=== PATIENT | female | born 1985 | race Caucasian/White ===

== ENCOUNTER 2017-01-16 11:03 | Outpatient (CLI) | payer BC ==
[2017-01-16 13:06] LABS: Hematocrit 36.2 % (36.0-47.0); Mean Platelet Volume 6.5 fL (7.4-10.4); Red Blood Cell (RBC) Count 3.88 mill/uL (4.20-5.40); White Blood Cell (WBC) Count 11.8 thou/uL (4.8-10.8)
== END 2017-01-16 11:04 | disposition home or self-care (01) ==
LOC: LABBT 11:03
PROVIDERS: ATTEND Student in an Organized Health Care Education/Training Program
DX: Z01.812 Encounter for preprocedural laboratory examination (principal); R87.613 High grade squamous intraepithelial lesion on cytologic smear of cervix (HGSIL); R10.9 Unspecified abdominal pain; D25.9 Leiomyoma of uterus, unspecified
CPT/HCPCS: 84703; 85027; 86850; 86900; 86901

== ENCOUNTER 2017-01-16 11:30 | Inpatient (IN) | payer BC ==
[2017-01-16 11:24] VITALS: BMI 25.4
--- NOTE | 2017-01-16 22:07 | HP ---
DATE OF OPERATION: 01/17/2017 CHIEF COMPLAINT: Pelvic pain and menorrhagia, VAL 3. HISTORY OF PRESENT ILLNESS: This is a 31-year-old, G0, who presented initially in 11/2016 with complaints of heavy menses and increasing right lower quadrant pain. She had been seen in the ER prior to this appointment and had a CT that showed significantly enlarged uterus up to 10 cm in AP dimension with the appearance of a large uterine fibroid. She subsequently had an ultrasound in my office that showed uterus measuring 12.67 x 8.16 x 9.6 with a large degenerating fibroid pulling the uterus measuring 9.89 x 7.06, normal right and left ovaries. 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 She underwent colposcopy with directed biopsies that showed a VAL 3 lesion on the ectocervix. She desired definitive management with hysterectomy for heavy menses and persistent daily pelvic pain and was counseled to undergo laparoscopic hysterectomy. CURRENT MEDICATIONS: None. ALLERGIES: IBUPROFEN causes tingling. PAST MEDICAL HISTORY: Denies. PAST SURGICAL HISTORY: Denies. OBSTETRIC HISTORY: G0. RADIOLOGY RN HISTORY: VAL 3 on recent colposcopy biopsy in 12/2016. No other STDs/HPV. SOCIAL HISTORY: smoking 4 cigarettes per day, occasional alcohol consumption. The patient is single and homosexual. FAMILY HISTORY: Diabetes. PHYSICAL EXAMINATION: VITAL SIGNS: Blood pressure 110/72, pulse is 80, respirations 18, weight 148, height of 64 inches, BMI is 25.4. GENERAL: No acute distress, alert and oriented x3. CARDIAC: Regular rate and rhythm. LUNGS: Clear to auscultation bilaterally. ABDOMEN: Soft, nontender. Lower abdominal masses palpated, deviated up to the right, approximately 4 fingerbreadths below the umbilicus. EXTREMITIES: No edema, cyanosis or clubbing. PELVIC: Deferred to the OR. ASSESSMENT AND PLAN: This is a 31-year-old, G0, with enlarged fibroid uterus, persistent pelvic pain, menometrorrhagia and degeneration, also with high grade cervical lesion, desiring definitive management. She will undergo a robotic assisted laparoscopic hysterectomy with bilateral salpingectomy. I have discussed no indication for ovarian removal and was grossly of normal appearing at the time of surgery. Discussed risk of surgery to include bleeding, transfusion, infection, damage to surrounding structures including bowel, bladder, ureter, blood vessels and nerves, also discussed with the patient tissue extraction with contained extracorporeal morcellation and she desires to proceed. All questions were answered and she will follow up with me in 2 weeks postoperative time. KEIRY
[2017-01-17] MEDS ORDERED: Bupivacaine 0.25% HCL 30 ML VIAL ONE (06:27)
[2017-01-17] MEDS ORDERED: CEFAZOLIN/Water 2 GM/20 ML SYRINGE ONE (06:32)
[2017-01-17] MEDS ORDERED: Midazolam HCl 2 mg/2 ml Vial ONE ×2 (06:52→07:20)
[2017-01-17] MEDS ORDERED: Fentanyl 250 MCG/5 ML VIAL ONE (06:52)
[2017-01-17] MEDS ORDERED: Glycopyrrolate 0.2 MG/ML 5 ML SYRINGE ONE ×4 (07:40→09:36)
[2017-01-17] MEDS ORDERED: ePHEDrine/0.9% NaCl/PF SYRINGE 50 mg/10 ml ONE (07:40)
[2017-01-17] MEDS ORDERED: Dexamethasone 20 MG/5 ML VIAL ONE (07:40)
[2017-01-17] MEDS ORDERED: Propofol 200 MG/20 ML VIAL ONE (07:40)
[2017-01-17] MEDS ORDERED: Ondansetron HCl/PF 4 MG/2 ML Vial ONE (07:40)
[2017-01-17] MEDS ORDERED: Metoclopramide HCl 10 MG/2 ML VIAL ONE (07:40)
[2017-01-17] MEDS ORDERED: Lidocaine 1% w/Epinephrine 1:200K 30 ML VIAL ONE (07:51)
[2017-01-17] MEDS ORDERED: Ondansetron HCl/PF 4 MG/2 ML Vial IVP PRN ×2 (09:15→10:14)
[2017-01-17] MEDS ORDERED: Promethazine HCl 25 MG/ML VIAL SLOW IVP PRN (09:15)
[2017-01-17] MEDS ORDERED: Promethazine HCl 25 MG/ML VIAL IM PRN ×2 (09:15→10:14)
[2017-01-17] MEDS ORDERED: diphenhydrAMINE 25 MG CAP PO PRN (10:14)
[2017-01-17] MEDS ORDERED: Simethicone Chewable 80 MG TAB PO PRN (10:14)
[2017-01-17] MEDS ORDERED: Zolpidem Tartrate 5 MG TAB PO PRN (10:14)
[2017-01-17] MEDS ORDERED: MORPHINE 10 MG/ML SYRINGE IV PRN (10:14)
[2017-01-17] MEDS ORDERED: Bisacodyl 10 MG SUPP PR PRN (10:14)
[2017-01-17] MEDS ORDERED: HYDROcodone/Acetaminophen 5/325 mg Tablet PO PRN ×2 (10:14)
[2017-01-17 10:38] LABS: Bilirubin Negative (Negative); Blood, Urine Large (Negative); Glucose, Urine (Dipstick) Negative (Negative); Ketone, Urine Trace mg/dL (Negative); Nitrite Negative (Negative); Protein, Urine (Dipstick) 100 mg/dL (Neg-Trace); Urobilinogen 0.2 mg/dL (0.2-1.0)
[2017-01-17] MEDS ORDERED: Morphine 4 MG/ML VIAL ONE (10:41)
[2017-01-17 10:46] LABS: Hyaline Casts/LPF 7-10 HYALINE CAST LPF (0-3 Hyaline); Squamous Epithelial 21-50 HPF (0-3); WBC/HPF 21-50 HPF (0-3)
[2017-01-17 11:04] LABS: Bacteria/HPF 2+ HPF (None Seen); RBC/HPF 21-50 HPF (0-3); Yeast-All Forms None Seen HPF (None Seen)
[2017-01-17] MEDS: Lactated Ringer's 1,000 ML IV SCH ×2 (11:35→17:18)
[2017-01-17] MEDS: Acetaminophen 1,000 MG in Premix Bag 1 BAG IVPB SCH ×3 (12:09→22:58)
[2017-01-18] MEDS: Acetaminophen 1,000 MG in Premix Bag 1 BAG IVPB SCH (04:57)
[2017-01-18] MEDS: Lactated Ringer's 1,000 ML IV SCH ×2 (05:03→08:51)
[2017-01-18 05:29] LABS: Hematocrit 34.8 % (36.0-47.0); Mean Platelet Volume 6.2 fL (7.4-10.4)
[2017-01-18 08:29] VITALS: BP 114/66; TEMP 98.4
--- NOTE | 2017-01-18 11:39 | DIS ---
ADMISSION DIAGNOSES: 1. Uterine fibroids. 2. VAL 3. 3. Pelvic pain. 4. Menorrhagia. POSTOPERATIVE DIAGNOSES: 1. Status post robotic assisted total laparoscopic hysterectomy, bilateral salpingectomy, extracorpo real morcellation. 2. Likely urinary tract infection. HISTORY AND PHYSICAL: Please see previously dictated H&P. HOSPITAL COURSE: The patient presented for surgery and underwent the planned surgery without complic ations. Please see operative note for details. Postoperatively, the patient did very well. Her sebastian n was controlled on postoperative day 0 with IV Tylenol alone. She had no nausea or vomiting and uri erated a regular diet as well as voided without difficulty. On postoperative day #1, the patient amb ulated without difficulty and tolerated a regular diet as well as p.o. Sterling. The patient has an all ergy to IBUPROFEN; however, can tolerate Naproxen and will be started on this as well. On the mornin g of discharge, the patient is feeling well and denies any nausea, vomiting, dizziness, heavy vaginal bleeding. She has passed flatus. PHYSICAL EXAMINATION: VITAL SIGNS: Temperature 98.4, T-max is 99.5, pulse 72, respirations 18, pulse ox 99% on room air, b lood pressure is 114/56. Ins 3226, out is 2700. GENERAL: No acute distress, alert and oriented x3. CARDIAC: Regular rate and rhythm. LUNGS: Clear to auscultation bilaterally. ABDOMEN: Soft, appropriately tender. Incisions are clean, dry, and intact. EXTREMITIES: No edema, cyanosis or clubbing. LABORATORY: Hemoglobin 11.2, hematocrit 34.8, platelets 311, white count 15. UA showed 3+ protein, 2+ leukocytes as well as RBCs and 2+ bacteria. Culture is pending. ASSESSMENT AND PLAN: This is a 31-year-old status post robotic TLH, bilateral salpingectomy and morc ellation postoperative day #1. Vital signs are stable. The patient has met her postoperative milest ones and is dispositioned for discharge. She was given instructions for pain control postoperatively as well as restrictions and to also be sent home on Macrobid 100 mg p.o. b.i.d. for 7 days while we await culture of urinary tract. She is given prescriptions Sterling 5/325 and Naproxen 500 mg and follo w up with me in 2 weeks postoperative time. Her final pathology and urine culture is pending at the time of discharge.
[2017-01-18] MEDS ORDERED: Acetaminophen 325 MG TAB PO PRN (16:00)
[2017-01-18] MEDS ORDERED: HYDROcodone/Acetaminophen 5/325 mg Tablet PO PRN ×2 (16:00)
--- NOTE | 2017-01-19 15:42 | OP ---
DATE OF OPERATION: 01/17/2017 PREOPERATIVE DIAGNOSES: 1. Uterine fibroids. 2. Cervical intraepithelial neoplasia III. 3. Menorrhagia. 4. Pelvic pain. POSTOPERATIVE DIAGNOSES: 1. Uterine fibroids. 2. Cervical intraepithelial neoplasia III. 3. Menorrhagia. 4. Pelvic pain. PROCEDURE: Robotic-assisted total laparoscopic hysterectomy, bilateral salpingectomy, and extracorpo real morcellation. ATTENDING SURGEON: Sherly Felix M.D. TOOL ADJUSTER: Sharif Giraldo M.D. ANESTHESIA: General endotracheal. FINDINGS: On exam under anesthesia, an 18 to 20-week size uterus was noted just below the umbilicus that was mobile. The cervix was grossly normal appearing. The uterus sounded to 13 cm. On intra-ab dominal survey, there were multiple fibroids within the uterus. The uterus was deviated to the patie nt's left side, and the fallopian tubes and ovaries were normal appearing. There was normal upper ab dominal survey as well. Contained morcellation was performed, and there was no spillage of cellular material during this process. The uterus weight was 623 grams. COMPLICATIONS: None. DRAINS: Chong catheter. PATHOLOGY: Uterus, cervix, bilateral fallopian tubes. ESTIMATED BLOOD LOSS: 50 mL URINE OUTPUT: 100 mL of cloudy urine. FLUIDS IN: Two liters crystalloid. OPERATIVE TECHNIQUE: The patient was taken to the operating room, where general anesthesia was obtai tyson without difficulty. The patient was prepped and draped in a sterile fashion in the dorsal lithot angelo position. A timeout was performed. The patient was administered 2 grams of Ancef. SCDs were on prior to induction of anesthesia, and a Chong catheter was placed in the bladder. A speculum was pl aced in the vagina. Anterior lip of the cervix was grasped with a single tooth tenaculum. Uterus th en sounded to 13 cm, and the MERVAT manipulator was assembled with a 12 cm tip and a 3.5 cm colpotomize r ring. The cervix was progressively dilated with Milan dilators, and the manipulator tip was inserte d to the uterine fundus. The balloon was inflated. The speculum was removed, and the colpotomizer r ing was advanced to fit snugly around the cervix, and the tenaculum was removed off the cervix. The legs were placed in low lithotomy. Attention was turned to the abdomen. A mixture of 1% lidocaine w ith 0.25% Marcaine was infiltrated into the midline approximately 3 cm superior to the umbilicus afte r ensuring an OG tube had been placed. A 12 mm skin incision was made, and a Veress needle was passe d into the abdomen noting an opening pressure of 2 mmHg. Pneumoperitoneum was achieved without diffi culty. The Veress needle was removed, and the 12 mm trocar was advanced into the abdomen confirming placement with the robotic camera. Steep Trendelenburg was obtained, and the above findings were not ed. The lower quadrant robotic trocars were placed. After infiltrating with the anesthetic mixture, an 8 mm skin incision made passing the trocars in under direct visualization. A right upper quadran t 11 mm salon assistant port was also placed under direct visualization after infiltrating with anesthetic. The robot was then docked. The right robotic arm contained the monopolar scissors. The left robot ic arm contained a fenestrated bipolar. The uterus was then elevated and anteverted, and the right f allopian tube was grasped and elevated, and a window was made in the mesosalpinx and carried medially and laterally until the tube had been completely dissected. The fallopian tube was then clamped acr oss, cauterized, and transected and removed out of the body. The utero-ovarian ligament on the right side was cauterized multiple times and transected down to the level of the round ligament that was c auterized and transected laterally as the uterus was very broad encompassing almost the entire pelvis . Care was taken to avoid any vascular structures in the pelvic sidewall. The anterior leaf of the broad ligament was opened up. However, due to the size of the uterus, visualization was difficult as there was a fibroid present obscuring the vesicouterine peritoneum. The posterior leaf of the broad ligament was carefully opened up, undermining with the fenestrated to ensure clear window, and this was able to be taken down to the level of the uterosacral, where the uterine vessels were then expose d, and careful retroperitoneal dissection of the vessels and skeletonization was performed with the s cissors. At that time, manipulation was slightly easier, and additional visualization was possible o f the bladder flap. The bladder flap was undermined and carefully incised to ensure no bladder mucos a was contained in the area of dissection. The hazy fibers and the retroperitoneum were dissected of f the bladder as far as the visualization would allow approximately to the mid portion of the bladder flap. Attention was turned to the patient's left side then, where there was difficulty in manipulat ing the left side secondary to the fibroid location. Therefore, the round ligament was easily visual ized on the left, and this was clamped, cauterized, and transected and this opened up and was able to be then clamped across the utero-ovarian as well as the fallopian tube, and this was cauterized mult iple times and transected sharply with the scissors, ensuring hemostasis. The fallopian tube was the n freed up, and the mesosalpinx was cauterized with the scissors as well as transected with the sciss ors, noting hemostasis in the mesosalpinx. The anterior leaf of the broad ligament was then opened u p on the left side and carried down distally; however, again visualization was difficult on this side . The posterior leaf of the broad ligament was dropped down to the uterosacral, and the uterine vasc ulature was skeletonized carefully with the blunt dissection with the fenestrated and sharp dissectio n with the scissors on cautery. At that time, the uterine vessels that had been skeletonized on the left side were cauterized multiple times at the level of the colpotomizer ring that was easily visibl e. Attention was then turned to the patient's right side, where manipulation had become much easier after freeing up the left side, and visualization of the bladder flap was excellent. The bladder fla p was created using blunt dissection with the back end of the scissors as well as with scoring techni benjamin on the pubocervical fascia dissecting down distally. The vessels were then skeletonized adequate ly on the right side, and then they were cauterized multiple times and subsequently transected. The left uterine vessels were also cauterized again and transected. Colpotomy was then begun on the left -sided pedicle, carried around anteriorly over the pubocervical fascia, and once the right side was m et, the fenestrator was slipped underneath and cauterized for additional hemostasis. Colpotomy was t hen carried around posteriorly, and the uterus was completely transected. At that time, the manipula tor was removed out of the uterus. The uterus was placed into the upper abdomen. The hemostasis was achieved at the vaginal cuff with the fenestrator, and the scissors were switched out for the needle test car driver. The cuff was copiously irrigated, and then the [employer] large bag was placed through the vagina into the abdomen, and this was also placed in the upper abdomen. The vaginal cuff was th en closed with a 2-0 barbed suture called Stratafix, and this was closed in a running fashion incorpo rating the vaginal mucosa in each bite, incorporation of the posterior peritoneum and excellent closu re of the angles. Hemostasis was noted to be excellent. Irrigation was again performed at the cuff and the pedicles noting hemostasis, and low pressure check was performed, again noting hemostasis. A t that time, the bag was then delivered into the pelvis, and the uterus was brought down from the upp er abdomen. Using the salon assistant and the needle test car driver, the uterus was able to be delivered into the bag, and the bag was then brought up through the salon assistant port to maintain the specimen inside the b ag. At that time, the robot was undocked, and the instruments were removed out of the abdomen. The incision of the camera trocar was extended to accommodate 3 cm including the fascial incision. The t rocar was then removed, and the small Hasn was placed through this incision and cinched down, and t he [employer] bag was then delivered through the Hans incision. At that time, the Hans was removed and placed on the anterior of the bag. Subsequently, the specimen was grasped with Prakash cla mps and was brought out in sections using a C-incision technique, and this process took an additional 25 minutes. Once the specimen had been completely removed, the Hans was removed out of the abdome n as well as the bag. The fascia of the umbilical port was closed with 0 Vicryl in a running fashion , and the incision was irrigated. The skin of the port sites were closed with 4-0 Monocryl in a subc uticular fashion, and Dermabond was applied over them. At that time, the vagina was checked and note d to be hemostatic with excellent closure. All instruments were removed from the vagina. The patien t tolerated the procedure well. Sponge, lap, and needle counts were correct x2. The patient was fredi en to the recovery room in stable condition.
== END 2017-01-18 09:30 | disposition home or self-care (01) | DRG 743 ==
LOC: SURG A 01-17 05:54 → 3SE 01-17 12:04
PROVIDERS: ADMIT Student in an Organized Health Care Education/Training Program; ATTEND Student in an Organized Health Care Education/Training Program
PROC: 0UT94ZZ Resection of Uterus, Percutaneous Endoscopic Approach (ICD-10-PCS; principal; 2017-01-17)
PROC: 0UTC4ZZ Resection of Cervix, Percutaneous Endoscopic Approach (ICD-10-PCS; 2017-01-17)
PROC: 0UT74ZZ Resection of Bilateral Fallopian Tubes, Percutaneous Endoscopic Approach (ICD-10-PCS; 2017-01-17)
PROC: 8E0W4CZ Robotic Assisted Procedure of Trunk Region, Percutaneous Endoscopic Approach (ICD-10-PCS; 2017-01-17)
DX: D25.9 Leiomyoma of uterus, unspecified (principal); N92.1 Excessive and frequent menstruation with irregular cycle; R87.613 High grade squamous intraepithelial lesion on cytologic smear of cervix (HGSIL)
CPT/HCPCS: 36415; 81001; 85027; 87086; 88307; A4216; J0131; J1100; J2250; J2270; J2405; J2704; J2765; J3010; S0020

== ENCOUNTER 2017-02-07 18:38 | Emergency (ER) | payer BC ==
[~2017-02-07 18:38] MED LIST: ISOVUE-370 76%-LOCM 1 ML ONE
[2017-02-07] MEDS ORDERED: Ondansetron HCl/PF 4 MG/2 ML Vial ONE (19:20)
[2017-02-07] MEDS ORDERED: Morphine 4 MG/ML VIAL ONE (19:20)
[2017-02-07 19:47] LABS: Bilirubin Negative (Negative); Blood, Urine Negative (Negative); Glucose, Urine (Dipstick) Negative (Negative); Ketone, Urine Negative (Negative); Nitrite Negative (Negative); Protein, Urine (Dipstick) Negative (Neg-Trace); Urobilinogen 0.2 mg/dL (0.2-1.0)
[2017-02-07 19:53] LABS: #Eosinphils 0.1 thou/uL (0.0-0.7); #Lymphocytes 0.8 thou/uL (1.20-3.40); #Monocytes 0.6 thou/uL (0.11-0.59); #Neutrophils 9.9 thou/uL (1.40-6.50); %Basophils 0.4 % (0.0-1.0); %Eosinophils 1.2 % (0.0-10.0); %Lymphocytes 6.7 % (21.0-51.0); Hematocrit 43.6 % (36.0-47.0); Red Blood Cell (RBC) Count 4.76 mill/uL (4.20-5.40); White Blood Cell (WBC) Count 11.4 thou/uL (4.8-10.8)
[2017-02-07 20:32] LABS: ALT (SGPT) 17 U/L (8-55); AST (SGOT) 17 U/L (5-34); Alkaline Phosphatase 79 U/L (40-150); Anion Gap 14 mmol/L (10-20); BUN (Urea Nitrogen) 24 mg/dL (7.0-18.7); Bilirubin, Total 0.6 mg/dL (0.2-1.2); Calc. Creatinine Clearance 0 mL/min (70-130); Calcium 9.3 mg/dL (7.8-10.44); Carbon Dioxide 24 mmol/L (22-29); Chloride 103 mmol/L (98-107); Estimated GFR-MDRD Greater than 90; Globulin 3.3 g/dL (2.4-3.5); Lipase 24 U/L (8-78); Protein, Total 7.3 g/dL (6.0-8.3)
[2017-02-07] MEDS ORDERED: Promethazine HCl 25 MG/ML VIAL ONE (20:59)
--- NOTE | 2017-02-07 21:37 | CT ---
EXAM: ABDOMEN CT WITH CONTRAST PELVIC CT WITH CONTRAST 02/07/17 HISTORY: Hysterectomy. Nausea, vomiting x2 days. Sharp abdominal pain. COMPARISON: 10/27/16. TECHNIQUE: Abdomen and pelvis CT are performed with IV contrast. Enteric contrast was not administered. Coronal reformatted images are submitted for interpretation. FINDINGS: ABDOMEN CT: Lung bases are clear. Normal heart size. No significant pericardial effusion. The descending thoracic aorta and abdominal aorta have a normal caliber. No periaortic fat stranding. Intra and extrahepatic portal vein is patent. Liver, spleen, pancreas, and adrenal glands have appropriate enhancement. Symmetric enhancement of the kidneys. Bilaterally, no obstructive uropathy. No gastrohepatic, retrocrural, or periportal lymphadenopathy. No mesenteric mass, lymphadenopathy, fr ee air of free fluid. Limited evaluation of the alimentary canal due to lack of oral contrast. Nonspecific, slightly promin ent loops of small bowel in the left hemiabdomen, measuring 3.6 cm. Focal ileus can be considered. Il eocecal junction is normal. Fecal material in a nondistended, nondilated colon. Diverticulosis, witho ut evidence of diverticulitis. Air filled appendix, normal in caliber. PELVIC CT: Hysterectomy changes. Hypodensity in the right hemipelvis is presumed to be due a right ovarian cyst, measuring 3.6 x 2.2 cm with an attenuation coefficient of 25 Hounsfield units. No pelvic lymphadenop athy, free air or free fluid. There are no lytic or blastic lesions in the osseous structures. IMPRESSION: 1. Slightly prominent loops of small bowel in the left hemiabdomen. Possible focal ileus cannot be completely excluded. No associated high grade obstruction. 2. Diverticulosis, without evidence of diverticulitis. 3. Normal caliber appendix. 4. Complex right ovarian cyst. Followup ultrasound in 8 to 10 weeks to ensure resolution is heena mmended. 5. Postsurgical changes compatible with hysterectomy. POS: [facility]
== END 2017-02-07 21:11 | disposition home or self-care (01) ==
LOC: ERS 18:38
DX: R11.2 Nausea with vomiting, unspecified (principal); R10.13 Epigastric pain; F17.210 Nicotine dependence, cigarettes, uncomplicated
CPT/HCPCS: 74177; 80053; 81003; 83690; 85025; 96361; 96374; 96375; J2270; J2405; J2550

== ENCOUNTER 2017-03-24 16:14 | Emergency (ER) | payer BC | END 2017-03-24 17:15 | disposition home or self-care (01) | LOC: ERS 16:14 | DX: J11.1 Influenza due to unidentified influenza virus with other respiratory manifestations (principal); F17.210 Nicotine dependence, cigarettes, uncomplicated | CPT/HCPCS: 99283 ==

== ENCOUNTER 2017-04-20 19:01 | Emergency (ER) | payer BC ==
[~2017-04-20 19:01] MED LIST changes: +Iopamidol 370 76% 50 ML VIAL FS ONE
[2017-04-20 19:42] LABS: Pregnancy Test - Urine (BHCG) Negative (Negative); Pregu Control Background? CLEAR/WHITE (CLR/WHITE); Pregu Control Bar Appear? YES (CONTROL BAR); Specific Gravity 1.031 (1.002-1.036)
[2017-04-20 19:53] LABS: #Basophils 0.1 thou/uL (0.0-0.2); #Eosinphils 0.1 thou/uL (0.0-0.7); #Lymphocytes 2.7 thou/uL (1.20-3.40); #Monocytes 0.7 thou/uL (0.11-0.59); #Neutrophils 3.6 thou/uL (1.40-6.50); %Basophils 1.5 % (0.0-1.0); %Eosinophils 1.9 % (0.0-10.0); %Lymphocytes 36.8 % (21.0-51.0); %Monocytes 9.5 % (0.0-10.0); %Neutrophils 50.3 % (42.0-75.0); Mean Corpuscular Hemoglobin 30.9 pg (27.0-31.0); Mean Corpuscular Volume 93.8 fl (81.0-99.0); Mean Platelet Volume 6.2 fL (7.4-10.4); Platelet Count 354 thou/uL (130-400); Red Blood Cell (RBC) Count 4.22 mill/uL (4.20-5.40); White Blood Cell (WBC) Count 7.2 thou/uL (4.8-10.8)
[2017-04-20 20:05] LABS: Bilirubin Negative (Negative); Blood, Urine Negative (Negative); Clarity CLEAR (Clear); Glucose, Urine (Dipstick) Negative (Negative); Leukocyte Negative (Negative); Nitrite Negative (Negative); Protein, Urine (Dipstick) Negative (Neg-Trace); Specific Gravity, Urine 1.031 (1.002-1.036); Urobilinogen 0.2 mg/dL (0.2-1.0)
[2017-04-20] MEDS ORDERED: traMADol HCl 50 MG TAB ONE (20:15)
[2017-04-20 20:18] LABS: ALT (SGPT) 15 U/L (8-55); AST (SGOT) 14 U/L (5-34); Albumin 4.3 g/dL (3.5-5.0); Alkaline Phosphatase 68 U/L (40-150); Anion Gap 14 mmol/L (10-20); BUN (Urea Nitrogen) 17 mg/dL (7.0-18.7); Bilirubin, Total 0.4 mg/dL (0.2-1.2); Calc. Creatinine Clearance 0 mL/min (70-130); Calcium 9.6 mg/dL (7.8-10.44); Carbon Dioxide 24 mmol/L (22-29); Chloride 104 mmol/L (98-107); Estimated GFR-MDRD Greater than 90; Globulin 3.2 g/dL (2.4-3.5); Glucose 79 mg/dL (70-105); Lipase 14 U/L (8-78); Potassium 3.9 mmol/L (3.5-5.1); Protein, Total 7.5 g/dL (6.0-8.3); Sodium 138 mmol/L (136-145)
[2017-04-20] MEDS ORDERED: Ondansetron HCl/PF 4 MG/2 ML Vial ONE (21:05)
--- NOTE | 2017-04-20 23:37 | CT ---
CT ABDOMEN AND PELVIS WITHOUT IV CONTRAST 04/20/17 HISTORY: Two day history of pulling right lower quadrant abdominal pain. Pain is rated as 7 out of 10. The sebastian n is exacerbated by movement and deep inspiration. COMPARISON: 02/07/17. FINDINGS: There is dependent bibasilar atelectasis. The liver, spleen, pancreas, bilateral adrenal glands, kidneys, abdominal aorta, urinary bladder, and opacified bowel demonstrate a normal CT appearance. The appendix is visualized and filled with contr ast and is normal in caliber. The uterus is not visualized probably related to hysterectomy. The right adnexal cystic lesion is not visualized likely related to resolution of an ovarian cyst. There is no free fluid, fluid collection, or lymphadenopathy seen in the abdomen or pelvis. IMPRESSION: 1. No acute findings in the abdomen or pelvis. 2. No CT evidence of appendicitis. 3. Hysterectomy. 4. Resolution of right adnexal cystic structure. POS: [facility]
== END 2017-04-21 00:20 | disposition home or self-care (01) ==
LOC: ERS 19:01
DX: R10.31 Right lower quadrant pain (principal); F17.210 Nicotine dependence, cigarettes, uncomplicated
CPT/HCPCS: 74177; 80053; 81003; 81025; 83690; 84443; 85025; 96361; 96372; 96374; 99406; J2405

== ENCOUNTER 2019-08-19 16:34 | Emergency (ER) | payer BC, OTHER | END 2019-08-19 17:19 | disposition home or self-care (01) | LOC: ERS 16:34 | DX: J30.2 Other seasonal allergic rhinitis (principal); F17.210 Nicotine dependence, cigarettes, uncomplicated | CPT/HCPCS: 99283 ==

== ENCOUNTER 2020-11-24 10:51 | Emergency (ER) | payer BC ==
[2020-11-24] MEDS ORDERED: Naproxen 500 MG TAB ONE (13:45)
== END 2020-11-24 14:02 | disposition home or self-care (01) ==
LOC: ERS 10:51
DX: S13.9XXA Sprain of joints and ligaments of unspecified parts of neck, initial encounter (principal); S00.83XA Contusion of other part of head, initial encounter; S00.12XA Contusion of left eyelid and periocular area, initial encounter; F17.210 Nicotine dependence, cigarettes, uncomplicated; Y04.8XXA Assault by other bodily force, initial encounter
CPT/HCPCS: 70450; 70486; 72125

== ENCOUNTER 2024-11-13 08:51 | Outpatient (CLI) | payer OTHER | END 2024-11-13 08:52 | disposition home or self-care (01) | LOC: BICMAMMO 08:51 | PROVIDERS: ATTEND Family Medicine | DX: Z12.31 Encounter for screening mammogram for malignant neoplasm of breast (principal) | CPT/HCPCS: 77063; 77067 ==